=== PATIENT | male | born 1970 | race Caucasian/White ===

== ENCOUNTER 2018-09-05 01:40 | Emergency (ER) | payer MEDICARE ==
[2018-09-05] MEDS ORDERED: NORMAL SALINE 1000 ML 1,000 ML IV ONE (01:47)
--- NOTE | 2018-09-05 01:52 | ER Document Report ---
ED General - General Stated Complaint: POSSIBLE SEIZURES Time Seen by Provider: 09/05/18 01:46 Primary Care Provider: JULES DAVALOS PA [ALLIED HEALTH PROFESSIONAL] - Follow up in 3-5 days Notes: Patient is a 48-year-old male who presents with complaint of syncopal episode. Patient says he was sitting at home when he suddenly felt warm and then passed out. He does have a history of seizures. He says he does not remember all activity and this did not feel similar to his seizures. He denies any injuries or trauma. He denies any recent fevers or infections. When paramedics arrived blood pressure was in the 70s. They have started a liter of IV fluids his blood pressure is now up into the low 90s. No runny nose cough or congestion. No chest pain. No abdominal pain. No headache. He does have a previous history of a head injury as well as a C-spine fracture which required surgery. He also has a history of previous GI bleed causing syncope. He denies noticing any blood in stool. No black or tarry stools. He denies any focal weakness or numbness in his extremities. He does drink alcohol on a semi-daily basis. He occasionally has some substance abuse. He is prescribed medications for blood pressure which she does not always take. He is also on baclofen due to history of recurrent muscle spasms in his right leg. TRAVEL OUTSIDE OF THE [place] IN LAST 30 DAYS: No - Related Data Allergies/Adverse Reactions: No Known Allergies Allergy (Verified 04/15/14 20:47) Past Medical History - Social History Smoking Status: Current Every Day Smoker Frequency of alcohol use: Occasional Drug Abuse: Marijuana Family History: Arthritis, CAD, CVA, DM, Hyperlipidemia, Hypertension, Malignancy - Past Medical History Cardiac Medical History: Reports: Hx Hypercholesterolemia, Hx Hypertension Pulmonary Medical History: Reports: Hx COPD GI Medical History: Reports: Hx Ulcer Musculoskeletal Medical History: Reports Hx Musculoskeletal Trauma - SEE BELOW Psychiatric Medical History: Reports: Hx Attention Deficit Hyperactivity Disorder Traumatic Medical History: Reports: Hx Fractures - C-SPINE, L ANKLE, R LEG Past Surgical History: Reports: Hx Abdominal Surgery - ulcer repair, Hx Orthopedic Surgery - neck - Immunizations Immunizations up to date: Yes Hx Diphtheria, Pertussis, Tetanus Vaccination: Yes - 2012 Review of Systems - Review of Systems Notes: My Normal Review Basic REVIEW OF SYSTEMS: CONSTITUTIONAL : Denies fever, chills, or sweats. Denies recent illness. EENT: Denies eye, ear, throat, or mouth pain or symptoms. Denies nasal or sinus congestion. CARDIOVASCULAR: Denies chest pain. RESPIRATORY: Denies cough, cold, or chest congestion. Denies shortness of breath, difficulty breathing, or wheezing. GASTROINTESTINAL: Denies abdominal pain. Denies nausea, vomiting, or diarrhea. GENITOURINARY: Denies difficulty urinating, painful urination, burning, frequency, or blood in urine. MUSCULOSKELETAL: Denies neck or back pain or joint pain or swelling. SKIN: Denies rash or skin lesions. NEUROLOGICAL: Syncopal episode. Denies headache. Denies weakness or paralysis or loss of use of either side. Denies problems with gait or speech. Denies sensory or motor loss. ALL OTHER SYSTEMS REVIEWED AND NEGATIVE. Physical Exam - Vital signs Vitals: Resp BP Pulse Ox 25 H 92/63 L 98 09/05/18 01:42 09/05/18 01:42 09/05/18 01:42 - Notes Notes: General Appearance: Well nourished, alert, cooperative, no acute distress, no obvious discomfort. Well-appearing. Vitals: reviewed, See vital signs table. Head: no swelling or tenderness to the head Eyes: PERRL, EOMI, Conjuctiva clear Mouth: No decreasd moisture Throat: No tonsillar inflammation, No airway obstruction, No lymphadenopathy Neck: Supple, no neck tenderness Lungs: No wheezing, No rales, No rhonci, No accessory muscle use, good air exchange bilaterally. Heart: Normal rate, Regular rythm, No murmur, no rub Abdomen: Normal BS, soft, No rigidity, No abdominal tenderness, No guarding, no rebound, no abdominal masses, no organomegaly. Patient refuses rectal exam. Extremities: strength 5/5 in all extremities, good pulses in all extremities, no swelling or tenderness in the extremities, no edema. Skin: warm, dry, appropriate color, no rash Neuro: speech clear, oriented x 3, normal affect, responds appropriately to questions. Cranial nerves II through XII are intact. Distal sensation intact. Patient moves all extremities without difficulty. Course - Re-evaluation Re-evalutation: 09/05/18 03:39 I strongly suspect that the patient's syncopal episode is related to hypotension. When paramedics arrived after syncopal episode his systolic blood pressure is in the 70s. I still do not know exactly why he has hypotension. Currently his blood pressures in the 90 systolic after IV fluids however it is in the low 90s. I informed the patient that I requested he be admitted for further work-up as to why his blood pressure is running low as I fear that if he leaves he could easily fall or pass out again and injure himself. I also informed him that I do not know the exact cause of why his blood pressure is low and that he could have a life-threatening cause that is not yet showing up on his work-up and therefore could be very dangerous for him to leave. Patient and his family show understanding of this however the patient's mother did yesterday and they have a to arrange tomorrow and therefore he says he cannot stay. Patient's family is at bedside and said they will watch him very c losely. I once again informed patient that I understand his circumstances but do strongly recommend him staying as I am worried about his health and I feel it to be very dangerous for him to leave. Patient again shows understanding of this but still refuses to stay and wants to be discharged. Informed patient that that I want what is best forms and I am not mad at him for wanting to leave. I informed him that that welcome to return anytime so that we can reevaluate him. Patient shows appreciation of this will be discharged as he requests. Patient is awake and alert and answering all questions appropriately. He has not shown any signs of confusion or altered mental status. Patient will be discharged home as requested. Dictation of this chart was performed using voice recognition software; therefore, there may be some unintended grammatical errors. - Vital Signs Vital signs: Temp Pulse Resp BP Pulse Ox 98.2 F 23 H 92/67 L 96 09/05/18 01:45 09/05/18 03:01 09/05/18 03:01 09/05/18 03:01 - Laboratory Result Diagrams: 09/05/18 01:43 09/05/18 01:43 Laboratory results interpreted by me: 09/05/18 09/05/18 01:43 01:43 WBC 14.8 H RDW 14.3 H Absolute Neutrophils 9.6 H Potassium 3.3 L Chloride 96 L BUN 21 H Creatinine 1.61 H Est GFR ( Amer) 55 L Est GFR (Non-Af Amer) 46 L ALT 17 L - EKG Interpretation by Me Additional EKG results interpreted by me: 09/05/18 01:56 EKG is reviewed and interpreted by me. EKG shows sinus rhythm with a rate of 75 bpm. Very mild concave up ST segment elevation in multiple leads. No reciprocal ST segment depression. FL interval, QRS duration, QT intervals are within normal range. No old EKG available for comparison. 09/05/18 01:57 Discharge - Discharge Clinical Impression: Syncope Qualifiers: Syncope type: unspecified Qualified Code(s): R55 - Syncope and collapse Hypotension Qualifiers: Hypotension type: unspecified hypotension type Qualified Code(s): I95.9 - Hypotension, unspecified Condition: Fair Disposition: HOME, SELF-CARE Additional Instructions: The exact cause of your low blood pressure causing you to pass out is not 100% clear at this time. Your laboratory evaluation is unremarkable at this time. Your CT scan of your head did not show any concerning findings. As discussed with you I do recommend admission as your blood pressure is still on the lower side and I do not have the exact cause of why it is low. There are multiple causes of low blood pressure and some of them could likely be life-threatening and therefore I strongly feel that you should stay in the hospital as I cannot fully rule out a life-threatening cause of your low blood pressure without observation in the hospital. There is no way to determine whether or not you will have a bad outcome within the next 24 hours and this is why we prefer you to stay. We respect your decision to leave and understand that you do have prior priorities. Even though you are leaving we are not upset or mad. We just want what is best for you and therefore we encourage you to come back anytime if you have any recurrence of your symptoms. Please drink non-caffeinated liquids. Please avoid alcohol. Please return to the ER at any time for reevaluation as we are happy to reevaluate you. Please do not take your blood pressure medication over the next 24 hours. Do not take your blood pressure medication if you are blood pressure is below 140/85. Referrals: JULES DAVALOS PA [ALLIED HEALTH PROFESSIONAL] - Follow up in 3-5 days
[2018-09-05] MEDS ORDERED: NICOTINE 21 MG/24 HR PATCH.TD24 TD ONE (02:33)
[2018-09-05 02:34] LABS: ABSOLUTE BASOPHILS # (AUTO) 0.1 10^3/uL (0.0-0.2); ABSOLUTE EOSINOPHILS # (AUTO) 0.3 10^3/uL (0.0-0.6); ABSOLUTE MONOCYTES (AUTO) 0.7 10^3/uL (0.1-1.4); ABSOLUTE NEUT (AUTO) 9.6 10^3/uL (1.7-8.2); BASOPHILS % (AUTO) 0.5 % (0-2); EOSINOPHILS % (AUTO) 2.1 % (0-6); HEMATOCRIT 47.7 % (37.9-51.0); HEMOGLOBIN 16.3 g/dL (13.5-17.0); LYMPHOCYTES % (AUTO) 27.3 % (13-45); MEAN CORPUSCULAR HEMOGLOBIN 32.1 pg (27.0-33.4); MEAN CORPUSCULAR HGB CONC 34.1 g/dL (32.0-36.0); MEAN CORPUSCULAR VOLUME 94 fl (80-97); MONOCYTES % (AUTO) 5.1 % (3-13); RED BLOOD COUNT 5.06 10^6/uL (4.35-5.55); RED CELL DISTRIBUTION WIDTH 14.3 % (11.5-14.0); TOTAL CELLS COUNTED % (AUTO) 100 %; WHITE BLOOD COUNT 14.8 10^3/uL (4.0-10.5)
--- NOTE | 2018-09-05 03:03 | RADIOLOGY REPORT (SQ) ---
EXAM DESCRIPTION: XR CHEST 1 VIEW COMPLETED DATE/TME: 09/05/2018 01:46 CLINICAL HISTORY: 48 years, Male, syncope Comparison: None FINDINGS: No focal lung consolidation. No pleural effusion. No pneumothorax. Cardiac and mediastinal silhouette is unremarkable. No acute osseous abnormality. Soft tissues are unremarkable. IMPRESSION: No acute findings. No focal lung consolidation.
--- NOTE | 2018-09-05 03:03 | RADIOLOGY REPORT (SQ) ---
EXAM DESCRIPTION: CT HEAD WITHOUT IV CONTRAST COMPLETED DATE/TME: 09/05/2018 01:46 CLINICAL HISTORY: 48 years, Male, syncope COMPARISON: None. TECHNIQUE: 184 Images stored on PACS. All CT scanners at this facility use dose modulation, iterative reconstruction, and/or weight based dosing when appropriate to reduce radiation dose to as low as reasonably achievable (ALARA). [facility]: Dose Right [facility]: CareDose [facility]: Dose Right [facility]: Teradose 4D [facility]: [employer] LIMITATIONS: None. FINDINGS: Globes are intact. Paranasal sinuses and mastoid air cells are unremarkable area no displaced or depressed skull fracture. No intra or extra-axial hemorrhage. CT is limited for evaluation of acute infarct. No CT evidence for large or territorial acute infarct. No mass. No midline shift IMPRESSION: Negative exam TECHNICAL DOCUMENTATION: Quality ID # [id number]: Final reports with documentation of one or more dose reduction techniques (e.g., Automated exposure control, adjustment of the mA and/or kV according to patient size, use of iterative reconstruction technique) copyright 2011 [employer]- All Rights Reserved
[2018-09-05 03:09] LABS: PLATELET COUNT 376 10^3/uL (150-450)
[2018-09-05 03:12] LABS: ALANINE AMINOTRANSFERASE 17 U/L (21-72); ALKALINE PHOSPHATASE 92 U/L (38-126); ANION GAP 16 (5-19); ASPARTATE AMINO TRANSFERASE 18 U/L (17-59); BILIRUBIN,DIRECT 0.3 mg/dL (0.0-0.4); BILIRUBIN,TOTAL 0.4 mg/dL (0.2-1.3); BLOOD UREA NITROGEN 21 mg/dL (7-20); CALCIUM 10.1 mg/dL (8.4-10.2); CARBON DIOXIDE 25 mmol/L (22-30); CHLORIDE 96 mmol/L (98-107); GLUCOSE 94 mg/dL (75-110); POTASSIUM 3.3 mmol/L (3.6-5.0); SODIUM 137.3 mmol/L (137-145); TOTAL PROTEIN 7.8 g/dL (6.3-8.2)
[2018-09-05 04:09] VITALS: BP 92/63
--- NOTE | 2018-09-05 06:37 | EKG REPORT ---
SEVERITY:- BORDERLINE ECG - SINUS RHYTHM BORDERLINE INFERIOR Q WAVES : Confirmed by: Albino Hall MD 05-Sep-2018 06:36:16
== END 2018-09-05 04:09 | disposition home or self-care (01) ==
LOC: ER 01:40
DX: I95.9 Hypotension, unspecified (principal); R55 Syncope and collapse; M62.838 Other muscle spasm; Z79.899 Other long term (current) drug therapy; F12.10 Cannabis abuse, uncomplicated; F17.200 Nicotine dependence, unspecified, uncomplicated; J44.9 Chronic obstructive pulmonary disease, unspecified; I10 Essential (primary) hypertension; Z91.14 Patient's other noncompliance with medication regimen
CPT/HCPCS: 93005; 99285; 96360; 96361; 36415; 85025; 80053; 84484; 71045; 70450; 93010; J7030

== ENCOUNTER 2019-09-08 02:34 | Emergency (ER) | payer MEDICARE ==
--- NOTE | 2019-09-08 02:38 | ER Document Report ---
ED General - General Stated Complaint: LEGAL BLOOD DRAW Time Seen by Provider: 09/08/19 02:37 Notes: 49-year-old male presents with no symptoms after being found in a parking lot next to his car intoxicated with alcohol. He is under arrest for DUI. He says he fell yesterday and has an abrasion on his nose but otherwise feels fine. TRAVEL OUTSIDE OF THE [place] IN LAST 30 DAYS: No - Related Data Allergies/Adverse Reactions: No Known Allergies Allergy (Verified 04/15/14 20:47) Past Medical History - General Information source: Patient - Social History Smoking Status: Unknown if Ever Smoked Family History: Arthritis, CAD, CVA, DM, Hyperlipidemia, Hypertension, Mal ignancy - Past Medical History Cardiac Medical History: Reports: Hx Hypercholesterolemia, Hx Hypertension Pulmonary Medical History: Reports: Hx COPD Neurological Medical History: Reports: Hx Seizures Renal/ Medical History: Denies: Hx Peritoneal Dialysis GI Medical History: Reports: Hx Ulcer Musculoskeletal Medical History: Reports Hx Musculoskeletal Trauma - SEE BELOW Psychiatric Medical History: Reports: Hx Attention Deficit Hyperactivity Disorder Traumatic Medical History: Reports: Hx Fractures - C-SPINE, L ANKLE, R LEG Past Surgical History: Reports: Hx Abdominal Surgery - ulcer repair, Hx Orthopedic Surgery - neck - Immunizations Immunizations up to date: Yes Hx Diphtheria, Pertussis, Tetanus Vaccination: Yes - 2012 Review of Systems - Review of Systems Notes: REVIEW OF SYSTEMS GEN: Denies fever, chills, weight loss ENT: Denies sore throat, nasal discharge, ear pain EYES: Denies blurry vision, eye pain, discharge CV: Denies chest pain, palpitations, edema RESP: Denies cough, shortness of breath, wheezing GI: Denies abdominal pain, nausea, vomiting, diarrhea MSK: Denies joint pain/swelling, edema, SKIN: Denies rash, skin lesions LYMPH: Denies swollen glands/lymph nodes NEURO: Denies headache, focal weakness or numbness, dizziness PSYCH: Denies depression, suicidal or homicidal ideation PHYSICAL EXAMINATION General: No acute distress, well-nourished Head: Atraumatic, normocephalic ENT: Mouth normal, oropharynx moist, lips normal Eyes: Conjunctiva normal, pupils equal, lids normal Neck: No JVD, supple, no guarding Resp: No resp distress, equal chest rise GI: Nondistended, no guarding Back: No midline or CVA tenderness Ext: No deformities, no edema Skin: Well-perfused, no rash Neuro: Awake, alert. Face symmetric. Physical Exam - Vital signs Vitals: Temp Pulse Resp BP Pulse Ox 97.0 F 65 18 112/54 L 100 09/08/19 02:44 09/08/19 02:44 09/08/19 02:44 09/08/19 02:44 09/08/19 02:44 Course - Re-evaluation Re-evalutation: 09/08/19 03:01 Asymptomatic mild intoxication Abrasion on nose which is very small without significant head trauma or need for imaging Blood draw and discharge - Vital Signs Vital signs: Temp Pulse Resp BP Pulse Ox 97.0 F 65 18 112/54 L 100 09/08/19 02:44 09/08/19 02:44 09/08/19 02:44 09/08/19 02:44 09/08/19 02:44 Discharge - Discharge Clinical Impression: Alcohol intoxication Qualifiers: Complication of substance-induced condition: uncomplicated Qualified Code(s): F10.920 - Alcohol use, unspecified with intoxication, uncomplicated Condition: Good Disposition: HOME, SELF-CARE Instructions: Acute Alcohol Intoxication ([facility])
[2019-09-08 02:45] VITALS: BP 112/54
== END 2019-09-08 03:15 | disposition home or self-care (01) ==
LOC: ER 02:34
DX: F10.920 Alcohol use, unspecified with intoxication, uncomplicated (principal)
CPT/HCPCS: 99284

== ENCOUNTER 2020-01-01 13:43 | Inpatient (IN) | payer MEDICARE ==
[2020-01-01] MEDS ORDERED: THIAMINE HCL 100 MG in NORMAL SALINE 50 ML IV ONE (14:10)
[2020-01-01] MEDS ORDERED: RINGERS SOLUTION,LACTATED 1,000 ML IV ONE (14:11)
--- NOTE | 2020-01-01 14:14 | ER Document Report ---
ED General - General Chief Complaint: Altered Mental Status Stated Complaint: WEAKNESS Time Seen by Provider: 01/01/20 14:07 Primary Care Provider: JULES DAVALOS PA [Primary Care Provider] - Follow up as needed TRAVEL OUTSIDE OF THE [place] IN LAST 30 DAYS: No - HPI Notes: 49-year-old male with past medical history for alcohol abuse, alcohol-related seizures, high blood pressure to the emergency department from home via EMS with complaints of altered mental status. Per his son Nawaf Patton, the patient seemed very hyperactive last night and he finally got the patient to lay down at approximately 4 AM after taking his Seroquel. He states the patient then was back up between 10 and 11 AM and was acting very confused. His son states that he was not making any sense when he was talking and all he kept saying was that he needed to urinate. Son states that he is so concerned by his behavior that he decided to call medics. Once the patient arrived here, he was very combative with staff. Extremely agitated and trying to climb out of bed. He is not able to give any history due to his acute confusion. His son does report that the patient is in alcoholic. He states that he has been drinking 9 beers a day. He states that he has in the past used marijuana but recently has been placed on probation. He does have a history of seizures when using alcohol. The last ti e the son reports of a possible seizure was in August 2018. Son states that he thought he had sent all the patient's medication to the emergency department with medics but he had just found a bottle of gabapentin besides the patient's bed. He is not exactly sure of the pill, but he says that it was filled on December 18. - Related Data Allergies/Adverse Reactions: No Known Allergies Allergy (Verified 04/15/14 20:47) Past Medical History - General Information source: Relative - Social History Smoking Status: Current Every Day Smoker Frequency of alcohol use: Heavy - 9 beers a day Drug Abuse: Marijuana, Methamphetamine Family History: Arthritis, CAD, CVA, DM, Hyperlipidemia, Hypertension, Malignancy - Past Medical History Cardiac Medical History: Reports: Hx Hypercholesterolemia, Hx Hypertension Pulmonary Medical History: Reports: Hx COPD Neurological Medical History: Reports: Hx Seizures Renal/ Medical History: Denies: Hx Peritoneal Dialysis GI Medical History: Reports: Hx Ulcer Musculoskeletal Medical History: Reports Hx Musculoskeletal Trauma - SEE BELOW Psychiatric Medical History: Reports: Hx Attention Deficit Hyperactivity Disorder Traumatic Medical History: Reports: Hx Fractures - C-SPINE, L ANKLE, R LEG Past Surgical History: Reports: Hx Abdominal Surgery - ulcer repair, Hx Orthopedic Surgery - neck - Immunizations Immunizations up to date: Yes Hx Diphtheria, Pertussis, Tetanus Vaccination: Yes - 2012 Review of Systems - Review of Systems -: Yes ROS unobtainable due to patient's medical condition - Patient is confused and not able to provide any review of system Physical Exam - Vital signs Vitals: Pulse Ox 98 01/01/20 14:01 Temp Pulse Resp BP Pulse Ox 97.8 F 87 14 104/67 99 01/01/20 18:00 01/01/20 17:00 01/01/20 17:01 01/01/20 17:01 01/01/20 17:01 Intake & Output 12/31/19 01/01/20 01/02/20 06:59 06:59 06:59 Intake Total 1050 Balance 1050 Interpretation: Normal - General General appearance: Alert, Combative Notes: Patient in significant distress. He is acutely confused and altered. All he can tell the staff is that he needs to pee. He cannot say his name or where he is. He cannot be redirected. He is fighting to get off the bed. - HEENT Head: Normocephalic, Atraumatic Eyes: Normal Pupils: PERRL - Respiratory Respiratory status: No respiratory distress Chest status: Nontender Breath sounds: Normal. No: Rales, Rhonchi, Wheezing Chest palpation: Normal - Cardiovascular Rhythm: Regular Heart sounds: Normal auscultation Murmur: No - Abdominal Inspection: Normal Distension: No distension Bowel sounds: Normal Tenderness: Nontender. No: Tender, McBurney's point, Snyder's sign, Guarding Organomegaly: No organomegaly - Extremities General upper extremity: Normal inspection, Nontender, Normal color, Normal ROM, Normal temperature General lower extremity: Normal inspection, Nontender, Normal color, Normal ROM, Normal temperature, Normal weight bearing - Neurological Neuro grossly intact: Yes Cognition: Confused Orientation: Disoriented to person, Disoriented to place, Disoriented to time, Disoriented to events Jeffry Coma Scale Eye Opening: Spontaneous Jeffry Coma Scale Verbal: Inappropriate Jeffry Coma Scale Motor: Localizes to Pain Jeffry Coma Scale Total: 12 Speech: Normal Cranial nerves: Normal. 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 He is not oriented to person place or time. He is is not oriented to events. He keeps asking to urinate. He continues to try to climb out of the bed so much so that the staff has to restrain him. Occasionally he will be extremely agitated and then lay back onto the bed into snoring respirations for a couple of minutes and then wake back up very very agitated. He cannot be redirected and he cannot follow commands because of his confusion. - Psychological Associated symptoms: Agitated, Combative, Confused, Restlessness - Skin Skin Temperature: Warm Skin Moisture: Dry Skin Color: Normal Course - Re-evaluation Re-evalutation: 01/01/20 Initially was called into the room for the patient being very agitated. He decided to give 1 mg of Ativan to help with his agitation. I did consult my ER attending, Dr. Silva. She went and saw the patient and agrees with the plan for evaluating the patient for possible overdose as well as troponin, head scan, chest x-ray. Patient continued to be very combative with staff despite 1 mg of Ativan. After he got back from CT, patient was even more combative. 5 mg of Haldol was given to the patient. Prior to the Haldol being given he laid back into a snoring respiration. We decided to go ahead and give the patient Haldol to help combat the agitation. This has worked and the patient has been quietly resting since. It is noted that when he is agitated his heart rate goes up to about 120. He is never been hypoxic. After initially getting the Haldol he did have an episode where his respiratory rate went down to 6-8 and his oxygen level went to 92%. He was able to recover without any intervention from that and has had a normal respiratory rate and normal oxygen level since. Dr. Silva and I have discussed the patient several times. Noted that amphetamines were positive on his urine drug screen and will send a amphetamine confirmation. Given a son states possible overuse of gabapentin will also send a gabapentin level. Head CT is negative. Chest x-ray is clear. Patient resting quietly now but do believe that he needs to come in for further evaluation. Spoke with Dr. Helm, hospitalist. He agrees with the plan for admission. He would like for the patient to be admitted to [facility]. I did speak with patient's son Nawaf Gao and he was able to get a true pill count for me on the gabapentin. The patient is supposed to take 300 mg 3 times a day. He got it filled on December 19, 2019. His current pill count is number 43 tablets. I advise Nawaf Rich of the plan to admit the patient for further management and evaluation. He agrees. The number to reach him is [phone]. Impression: Altered mental status, alcohol abuse. Admitted to the hospitalist team. After patient was evaluated by the hospitalist team he awoke. He seems to be a little less confused now. He still saying consistently that he needs to urinate. However he cannot tell me his name which is an improvement. He can be redirected a little bit better. He is not nearly as combative. He still fairly agitated. - Vital Signs Vital signs: Temp Pulse Resp BP Pulse Ox 87 14 104/67 99 01/01/20 17:00 01/01/20 17:01 01/01/20 17:01 01/01/20 17:01 - Laboratory Result Diagrams: 01/01/20 14:02 01/01/20 14:02 Laboratory results interpreted by me: 01/01/20 01/01/20 01/01/20 14:02 14:02 14:26 RDW 15.2 H Lymph % (Auto) 11.3 L Seg Neutrophils % 82.8 H ABG pO2 ABG O2 Saturation Carbon Dioxide 20 L Glucose 148 H Total Protein 8.3 H Albumin 5.2 H Urine Ketones TRACE H Salicylates < 1.0 L Acetaminophen < 10 L 01/01/20 16:00 RDW Lymph % (Auto) Seg Neutrophils % ABG pO2 182.5 H ABG O2 Saturation 99.2 H Carbon Dioxide Glucose Total Protein Albumin Urine Ketones Salicylates Acetaminophen - Diagnostic Test Radiology reviewed: Image reviewed, Reports reviewed - EKG Interpretation by Me Additional EKG results interpreted by me: 01/01/20 18:43 Rate: 95, rhythm: Sinus rhythm, interpretation: No STEMI, no ST changes, no T wave inversions, normal axis, no LVH. This is not particularly different from prior on October 24, 2018 Discharge - Discharge Clinical Impression: Alcohol abuse Altered mental status Qualifiers: Altered mental status type: unspecified Qualified Code(s): R41.82 - Altered mental status, unspecified Condition: Stable Disposition: ADMITTED INPATIENT Admitting Provider: Alicja (Hospitalist) Unit Admitted: [facility] Referrals: JULES DAVALOS PA [Primary Care Provider] - Follow up as needed
[2020-01-01 14:27] LABS: ABSOLUTE BASOPHILS # (AUTO) 0.1 10^3/uL (0.0-0.2); ABSOLUTE EOSINOPHILS # (AUTO) 0.1 10^3/uL (0.0-0.6); ABSOLUTE MONOCYTES (AUTO) 0.4 10^3/uL (0.1-1.4); ABSOLUTE NEUT (AUTO) 7.5 10^3/uL (1.7-8.2); BASOPHILS % (AUTO) 0.7 % (0-2); EOSINOPHILS % (AUTO) 0.6 % (0-6); HEMATOCRIT 45.4 % (37.9-51.0); HEMOGLOBIN 15.7 g/dL (13.5-17.0); LYMPHOCYTES % (AUTO) 11.3 % (13-45); MEAN CORPUSCULAR HEMOGLOBIN 32.6 pg (27.0-33.4); MEAN CORPUSCULAR HGB CONC 34.5 g/dL (32.0-36.0); MEAN CORPUSCULAR VOLUME 95 fl (80-97); MONOCYTES % (AUTO) 4.6 % (3-13); PLATELET COUNT 325 10^3/uL (150-450); RED BLOOD COUNT 4.81 10^6/uL (4.35-5.55); RED CELL DISTRIBUTION WIDTH 15.2 % (11.5-14.0); SEGMENTED NEUTROPHILS % (AUTO) 82.8 % (42-78); TOTAL CELLS COUNTED % (AUTO) 100 %
[2020-01-01] MEDS ORDERED: LORAZEPAM INJ 2 MG/1 ML VIAL IV ONE ×2 (14:38→14:51)
--- NOTE | 2020-01-01 14:42 | ER Document Report ---
Doctor's Note Notes: 01/01/20 14:40 I was asked to evaluate the patient by the GILBERTO. Patient was brought in by EMS for altered mental status. He apparently had several drinks today. Patient becomes intermittently agitated and then goes to sleep. He is unable to provide any history. Patient repeats "I have to pee". He does have a catheter in. Patient does have a history of alcohol abuse. On exam, he is agitated. Patient has bilateral pinpoint pupils. Heart is regular, S1 and S2. Clear breath sounds bilaterally. He is breathing easy on room air. Abdomen is soft. Patient moves all extremities. Skin appears normal. We will obtain altered mental status work-up. Patient became very agitated during my evaluation. We will give 0.5 mg Ativan. I agree with evaluation and plan by the GILBERTO. Patient will be admitted to the hospital for altered mental status. 01/01/20 18:29
[2020-01-01 14:48] LABS: ALBUMIN 5.2 g/dL (3.5-5.0); ALKALINE PHOSPHATASE 106 U/L (38-126); ANION GAP 14 (5-19); ASPARTATE AMINO TRANSFERASE 39 U/L (17-59); BILIRUBIN,DIRECT 0.3 mg/dL (0.0-0.4); BILIRUBIN,TOTAL 0.5 mg/dL (0.2-1.3); BLOOD UREA NITROGEN 19 mg/dL (7-20); CALCIUM 10.1 mg/dL (8.4-10.2); CARBON DIOXIDE 20 mmol/L (22-30); CHLORIDE 107 mmol/L (98-107); GLUCOSE 148 mg/dL (75-110); POTASSIUM 4.7 mmol/L (3.6-5.0); TOTAL PROTEIN 8.3 g/dL (6.3-8.2)
[2020-01-01 14:49] LABS: ACETAMINOPHEN < 10 ug/mL (10-30); ALCOHOL < 10 mg/dL (NONE DETECTED); SALICYLATE < 1.0 mg/dL (2.0-20.0)
[2020-01-01] MEDS ORDERED: HALOPERIDOL LACTATE INJ 5 MG/1 ML VIAL IV ONE (15:19)
--- NOTE | 2020-01-01 15:21 | RADIOLOGY REPORT (SQ) ---
EXAM DESCRIPTION: CT HEAD WITHOUT IMAGES COMPLETED DATE/TIME: 01/01/2020 3:12 pm REASON FOR STUDY: altered mental status COMPARISON: 10/24/2018 TECHNIQUE: Axial images acquired through the brain without intravenous contrast. Images reviewed wi th bone, brain and subdural windows. Additional sagittal and coronal reconstructions were generated. Images stored on PACS. All CT scanners at this facility use dose modulation, iterative reconstruction, and/or weight based d osing when appropriate to reduce radiation dose to as low as reasonably achievable (ALARA). [facility]: Dose Right [facility]: CareDose [facility]: Dose Right [facility]: Teradose 4D [facility]: Smart Meeps RADIATION DOSE: CT Rad equipment meets quality standard of care and radiation dose reduction techniq ues were employed. CTDIvol: 55.2 mGy. DLP: 1084 mGy-cm. mGy. LIMITATIONS: None. FINDINGS: VENTRICLES: Normal size and contour. CEREBRUM: No masses. No hemorrhage. No midline shift. No evidence for acute infarction. Normal gra y/white matter differentiation. No areas of low density in the white matter. CEREBELLUM: No masses. No hemorrhage. No alteration of density. No evidence for acute infarction. EXTRAAXIAL SPACES: No fluid collections. No masses. ORBITS AND GLOBE: No intra- or extraconal masses. Normal contour of globe without masses. CALVARIUM: No fracture. PARANASAL SINUSES: No fluid or mucosal thickening. SOFT TISSUES: No mass or hematoma. OTHER: No other significant finding. IMPRESSION: NORMAL BRAIN CT WITHOUT CONTRAST. EVIDENCE OF ACUTE STROKE: NO. COMMENT: Quality ID # [id number]: Final reports with documentation of one or more dose reduction techniques (e.g., Automated exposure control, adjustment of the mA and/or kV according to patient size, use of iterative reconstruction technique) TECHNICAL DOCUMENTATION: JOB ID: [id number] 2010 [employer]- All Rights Reserved Reading location - IP/workstation name: [email or web address]
--- NOTE | 2020-01-01 16:00 | RADIOLOGY REPORT (SQ) ---
EXAM DESCRIPTION: CHEST SINGLE VIEW IMAGES COMPLETED DATE/TIME: 01/01/2020 3:52 pm REASON FOR STUDY: Altered mental status COMPARISON: 10/24/2018 EXAM PARAMETERS: NUMBER OF VIEWS: One view. TECHNIQUE: Single frontal radiographic view of the chest acquired. RADIATION DOSE: NA LIMITATIONS: None. FINDINGS: LUNGS AND PLEURA: No opacities, masses or pneumothorax. No pleural effusion. MEDIASTINUM AND HILAR STRUCTURES: No masses. Contour normal. HEART AND VASCULAR STRUCTURES: Heart normal in size. Normal vasculature. BONES: No acute findings. HARDWARE: None in the chest. OTHER: No other significant finding. IMPRESSION: NO ACUTE RADIOGRAPHIC FINDING IN THE CHEST. TECHNICAL DOCUMENTATION: JOB ID: [id number] 2010 [employer]- All Rights Reserved Reading location - IP/workstation name: [email or web address]
[2020-01-01 16:38] LABS: APPEARANCE,URINE CLEAR; BILIRUBIN,URINE NEGATIVE (NEGATIVE); COLOR,URINE YELLOW; GLUCOSE, URINE NEGATIVE (NEGATIVE); KETONES,URINE TRACE mg/dL (NEGATIVE); PROTEIN,URINE NEGATIVE (NEGATIVE); URINE SPECIFIC GRAVITY 1.019; UROBILINOGEN,URINE NEGATIVE mg/dL (<2.0)
[2020-01-01 16:42] LABS: INTERNATIONAL RATION (INR) 0.91; PROTHROMBIN TIME 12.4 SEC (11.4-15.4)
[2020-01-01 16:43] LABS: PARTIAL THROMBOPLASTIN TIME 30.1 SEC (23.5-35.8)
[2020-01-01 17:02] LABS: URINE BARBITURATES SCREEN NEGATIVE; URINE BENZODIAZEPINES SCREEN NEGATIVE; URINE COCAINE SCREEN NEGATIVE; URINE METHADONE SCREEN NEGATIVE; URINE PHENCYCLIDINE SCREEN NEGATIVE
[2020-01-01 17:04] LABS: ARTERIAL BLOOD BASE EXCESS -2.6 mmol/L; ARTERIAL BLOOD H2CO3 1.18 mmol/L (1.05-1.35); ARTERIAL BLOOD HCO3 22.2 mmol/L (20-24); ARTERIAL BLOOD O2 SATURATION 99.2 % (94-98); ARTERIAL BLOOD PCO2 39.1 mmHg (35-45); ARTERIAL BLOOD PH 7.37 (7.35-7.45); ARTERIAL BLOOD PO2 182.5 mmHg (80-100); ARTERIAL BLOOD TOTAL CO2 23.4 mmol/L (23-27)
[2020-01-01 17:08] LABS: ARTERIAL BLOOD FIO2 2L
[2020-01-01 17:28] LABS: URINE MARIJUANA (THC) SCREEN UNCONFIRMED POSITIVE
[2020-01-01] MEDS ORDERED: ACETAMINOPHEN 325 MG TABLET PO PRN (18:10)
[2020-01-01] MEDS ORDERED: ONDANSETRON HCL INJ/PF 4 MG/2 ML SDV IV PRN (18:10)
[2020-01-01] MEDS ORDERED: NICOTINE 14 MG/24 HR PATCH.TD24 TD ONE (18:30)
--- NOTE | 2020-01-01 18:36 | PDOC H&P ---
History of Present Illness Admission Date/PCP: PONCE CEDENO Patient complains of: Brought in by family for altered mental status History of Present Illness: SIERRA HERNANDEZ is a 49 year old male with history of chronic smoking, COPD, alcohol abuse, chronic pain syndrome was brought to the emergency room by family members with altered mental status. In the emergency room he was combative and agitated. He was given Haldol. The work-up including labs, CT head, chest x- ray within normal limits. Urine tox indicating positive for amphetamines, marijuana. Alcohol level is less than 10. Medical consult called for admission. unAble to get any information from the patient. Past Medical History Cardiac Medical History: Reports: Hyperlipidema, Hypertension Pulmonary Medical History: Reports: Chronic Obstructive Pulmonary Disease (COPD) Neurological Medical History: Reports: Seizures Psychiatric Medical History: Reports: Attention Deficit Hyperactivity Disorder Past Surgical History Past Surgical History: Reports: Orthopedic Surgery - neck Social History Information Source: [facility] Smoking Status: Unknown if Ever Smoked Electronic Cigarette use?: No Frequency of Alcohol Use: Heavy Hx Recreational Drug Use: Yes Drugs: Marijuana - Advance Directive Resuscitation Status: Full Code Family History Family History: Arthritis, CAD, CVA, DM, Hyperlipidemia, Hypertension, Malignancy Parental Family History Reviewed: Yes - Unknown at this time. Children Family History Reviewed: Yes Sibling(s) Family History Reviewed.: Yes Medication/Allergy Home Medications: Diazepam [Valium 5 Mg Tablet] 5 mg PO Q8HP PRN #10 tablet 08/27/12 Alprazolam [Xanax] 1 mg PO DAILY 12/18/13 Lansoprazole [Prevacid] 30 mg PO BID 12/18/13 Oxycodone HCl [Oxycontin] 20 mg PO QID 12/18/13 Quetiapine Fumarate [Seroquel] 50 mg PO QHS 12/18/13 Rosuvastatin Calcium [Crestor] 40 mg PO DAILY 12/18/13 Cephalexin Monohydrate [Keflex 500 mg Capsule] 500 mg PO QID #20 capsule 04/15/14 Dextroamphetamine/Amphetamine [Adderall 10 mg Tablet] 10 mg PO DAILY 04/15/14 Allergies/Adverse Reactions: No Known Allergies Allergy (Verified 04/15/14 20:47) Review of Systems ROS unobtainable: Due to mental status Constitutional: ABSENT: fever(s), headache(s), weakness Eyes: ABSENT: visual disturbances Ears: ABSENT: hearing changes Nose, Mouth, and Throat: ABSENT: sore throat Gastrointestinal: ABSENT: abdominal pain, constipation, diarrhea, hematemesis, hematochezia, nausea, vomiting Genitourinary: ABSENT: dysuria, hematuria Musculoskeletal: ABSENT: joint swelling Integumentary: ABSENT: rash, wounds Neurological: PRESENT: confusion Psychiatric: ABSENT: anxiety, depression, homidical ideation, suicidal ideation Endocrine: ABSENT: cold intolerance, heat intolerance, polydipsia, polyuria Physical Exam Vital Signs: Temp Pulse Resp BP Pulse Ox 87 14 104/67 99 01/01/20 17:00 01/01/20 17:01 01/01/20 17:01 01/01/20 17:01 Intake & Output 12/31/19 01/01/20 01/02/20 06:59 06:59 06:59 Intake Total 1050 Balance 1050 General appearance: PRESENT: no acute distress, cooperative, well-developed. ABSENT: mild distress Head exam: PRESENT: atraumatic Eye exam: PRESENT: PERRLA Ear exam: PRESENT: normal external ear exam Neck exam: ABSENT: carotid bruit, JVD, lymphadenopathy, thyromegaly Respiratory exam: PRESENT: decreased breath sounds Cardiovascular exam: PRESENT: RRR. ABSENT: diastolic murmur, rubs, systolic murmur GI/Abdominal exam: PRESENT: normal bowel sounds, soft. ABSENT: distended, guarding, mass, organolmegaly, rebound, tenderness Rectal exam: PRESENT: deferred Extremities exam: PRESENT: full ROM. ABSENT: calf tenderness, clubbing, pedal edema Neurological exam: PRESENT: alert Results Laboratory Results: 01/01/20 14:02 01/01/20 14:02 01/01/20 01/01/20 01/01/20 14:02 14:02 14:02 WBC 9.0 RBC 4.81 Hgb 15.7 Hct 45.4 MCV 95 MCH 32.6 MCHC 34.5 RDW 15.2 H Plt Count 325 Seg Neutrophils % 82.8 H Carbonic Acid HCO3/H2CO3 Ratio ABG pH ABG pCO2 ABG pO2 ABG HCO3 ABG O2 Saturation ABG Base Excess FiO2 Sodium 141.2 Potassium 4.7 Chloride 107 Carbon Dioxide 20 L Anion Gap 14 BUN 19 Creatinine 0.88 Est GFR ( Amer) > 60 Glucose 148 H Lactic Acid 1.1 Calcium 10.1 Magnesium 2.1 Total Bilirubin 0.5 AST 39 Alkaline Phosphatase 106 Total Protein 8.3 H Albumin 5.2 H Urine Color Urine Appearance Urine pH Ur Specific [place] Urine Protein Urine Glucose (UA) Urine Ketones Urine Blood Urine RBC (Auto) 01/01/20 01/01/20 14:26 16:00 WBC RBC Hgb Hct MCV MCH MCHC RDW Plt Count Seg Neutrophils % Carbonic Acid 1.18 HCO3/H2CO3 Ratio 18:1 ABG pH 7.37 ABG pCO2 39.1 ABG pO2 182.5 H ABG HCO3 22.2 ABG O2 Saturation 99.2 H ABG Base Excess -2.6 FiO2 2L Sodium Potassium Chloride Carbon Dioxide Anion Gap BUN Creatinine Est GFR ( Amer) Glucose Lactic Acid Calcium Magnesium Total Bilirubin AST Alkaline Phosphatase Total Protein Albumin Urine Color YELLOW Urine Appearance CLEAR Urine pH 5.0 Ur Specific [place] 1.019 Urine Protein NEGATIVE Urine Glucose (UA) NEGATIVE Urine Ketones TRACE H Urine Blood NEGATIVE Urine RBC (Auto) 5 01/01/20 14:02 Troponin I < 0.012 Impressions: Chest X-Ray 01/01/20 14:12 IMPRESSION: NO ACUTE RADIOGRAPHIC FINDING IN THE CHEST. Head CT 01/01/20 14:12 IMPRESSION: NORMAL BRAIN CT WITHOUT CONTRAST. EVIDENCE OF ACUTE STROKE: NO. Assessment and Plan - Diagnosis (1) Altered mental status Qualifiers: Altered mental status type: unspecified Qualified Code(s): R41.82 - Altered mental status, unspecified Is this a current diagnosis for this admission?: Yes Plan: 01/01/2020-patient admitted to [facility] as inpatient for altered mental status. To watch for seizure precautions. Aspiration fall precautions requested. GI prophylaxis DVT prophylaxis initiated. Neurochecks will be requested every [address] head was negative for acute pathology. Altered mental status/acute metabolic encephalopathy may be secondary to polysubstance abuse and alcohol withdrawal. (2) Alcohol abuse Is this a current diagnosis for this admission?: No Plan: 01/01/2020-patient has history of heavy alcohol use. Alcohol level is less than 10 in the ER. Started on Ativan 2 mg IV every 4 as needed to prevent DTs. (3) Tobacco abuse Is this a current diagnosis for this admission?: No Plan: 01/01/2020-patient is a daily day smoker. Order for nicotine patches in place. (4) Chronic pain syndrome Is this a current diagnosis for this admission?: No Plan: 01/01/2020-patient is taking oxycodone 20 mg 4 times a day at home. Plan to restart the medications at this time. (5) COPD (chronic obstructive pulmonary disease) Is this a current diagnosis for this admission?: No Plan: 01/01/2020-patient has history of COPD secondary to chronic smoking. Pulse ox is 99% room air. On examination chest bilateral entry was decreased no wheezing no crepitations. Urine testing is positive for marijuana. - Time Anticipated Discharge Disposition: Home, Self Care Anticipated Discharge Timeframe: within 72 hours
[2020-01-01] MEDS: LORAZEPAM INJ 2 MG/1 ML VIAL IV PRN (19:35)
--- NOTE | 2020-01-01 19:52 | EKG REPORT ---
SEVERITY:- NORMAL ECG - SINUS RHYTHM : Confirmed by: Daniel Bauer 01-Jan-2020 19:51:13
[2020-01-01] MEDS: HEPARIN SOD (PORCINE) 5,000 UNIT/ML 1 ML VIAL SUBCUT SCH (22:21)
[2020-01-02] MEDS: LORAZEPAM INJ 2 MG/1 ML VIAL IV PRN (00:36)
[2020-01-02] MEDS: NORMAL SALINE 1000 ML 1,000 ML IV PRN ×3 (01:09→23:07)
[2020-01-02 03:47] LABS: ABSOLUTE BASOPHILS # (AUTO) 0.1 10^3/uL (0.0-0.2); ABSOLUTE EOSINOPHILS # (AUTO) 0.1 10^3/uL (0.0-0.6); ABSOLUTE MONOCYTES (AUTO) 0.7 10^3/uL (0.1-1.4); HEMOGLOBIN 15.1 g/dL (13.5-17.0); TOTAL CELLS COUNTED % (AUTO) 100 %
[2020-01-02 04:00] LABS: INTERNATIONAL RATION (INR) 0.93; PROTHROMBIN TIME 12.7 SEC (11.4-15.4)
[2020-01-02 04:01] LABS: ABSOLUTE LYMPHOCYTES (AUTO) 1.9 10^3/uL (0.5-4.7); ABSOLUTE NEUT (AUTO) 6.7 10^3/uL (1.7-8.2); ALBUMIN 4.8 g/dL (3.5-5.0); ALKALINE PHOSPHATASE 107 U/L (38-126); ANION GAP 12 (5-19); ASPARTATE AMINO TRANSFERASE 35 U/L (17-59); BASOPHILS % (AUTO) 0.9 % (0-2); BILIRUBIN,DIRECT 0.3 mg/dL (0.0-0.4); BILIRUBIN,TOTAL 0.5 mg/dL (0.2-1.3); BLOOD UREA NITROGEN 17 mg/dL (7-20); CARBON DIOXIDE 22 mmol/L (22-30); CHLORIDE 107 mmol/L (98-107); CHOLESTEROL 187.88 mg/dL (0-200); EOSINOPHILS % (AUTO) 1.3 % (0-6); GLUCOSE 85 mg/dL (75-110); HEMATOCRIT 42.9 % (37.9-51.0); MEAN CORPUSCULAR HGB CONC 35.1 g/dL (32.0-36.0); MEAN CORPUSCULAR VOLUME 94 fl (80-97); PLATELET COUNT 287 10^3/uL (150-450); POTASSIUM 3.8 mmol/L (3.6-5.0); RED BLOOD COUNT 4.57 10^6/uL (4.35-5.55); RED CELL DISTRIBUTION WIDTH 15.3 % (11.5-14.0); SEGMENTED NEUTROPHILS % (AUTO) 70.8 % (42-78); TOTAL PROTEIN 7.4 g/dL (6.3-8.2); TRIGLYCERIDES 89 mg/dL (<150); WHITE BLOOD COUNT 9.5 10^3/uL (4.0-10.5)
[2020-01-02 04:11] LABS: NT PRO BNP 128 pg/mL (<125)
[2020-01-02 04:19] LABS: DIRECT LDL 86 mg/dL (<100)
[2020-01-02 04:20] LABS: TROPONIN I < 0.012 ng/mL
[2020-01-02] MEDS ORDERED: LOSARTAN POTASSIUM 50 MG TABLET PO ONE (04:38)
[2020-01-02] MEDS: PANTOPRAZOLE SODIUM 40 MG TABLET.DR PO SCH ×2 (05:21→17:12)
[2020-01-02] MEDS: HEPARIN SOD (PORCINE) 5,000 UNIT/ML 1 ML VIAL SUBCUT SCH ×3 (05:21→22:01)
--- NOTE | 2020-01-02 18:48 | PDOC PROGRESS REPORT ---
Subjective Subjective:: Per Previous Physician: "SIERRA HERNANDEZ is a 49 year old male with history of chronic smoking, COPD, alcohol abuse, chronic pain syndrome was brought to the emergency room by family members with altered mental status. In the emergency room he was combative and agitated. He was given Haldol. The work-up including labs, CT head, chest x-ray within normal limits. Urine tox indicating positive for amphetamines, marijuana. Alcohol level is less than 10. Medical consult called for admission. unAble to get any information from the patient." 01/02/2020 Patient is still persistently confused today. He knows he is at [facility] and he knows his own name but otherwise he is not oriented. BNP was normal and other labs are unremarkable, they do not correlate with a cause of his altered mental status. He has no new complaints today. We will hold sedating medications as there may be a polypharmacy component here. 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 Reason For Visit: ALTERED MENTAL STATUS Physical Exam Vital Signs: Temp Pulse Resp BP Pulse Ox 97.7 F 81 16 141/75 H 97 01/02/20 16:00 01/02/20 16:00 01/02/20 16:00 01/02/20 16:00 01/02/20 16:00 Intake & Output 01/01/20 01/02/20 01/03/20 06:59 06:59 06:59 Intake Total 1050 2030 Output Total 500 Balance 1050 1530 Weight 76.657 kg General appearance: PRESENT: no acute distress, well-developed, well-nourished Head exam: PRESENT: atraumatic, normocephalic Eye exam: PRESENT: conjunctiva pink Mouth exam: PRESENT: moist Respiratory exam: PRESENT: clear to auscultation paul. ABSENT: rales, rhonchi, wheezes Cardiovascular exam: PRESENT: RRR. ABSENT: diastolic murmur, rubs, systolic murmur GI/Abdominal exam: PRESENT: normal bowel sounds, soft. ABSENT: distended, guarding, mass, organolmegaly, rebound, tenderness Neurological exam: PRESENT: alert, awake, oriented to person, oriented to place. ABSENT: oriented to time, oriented to situation Psychiatric exam: PRESENT: appropriate affect, normal mood Skin exam: PRESENT: dry, intact, warm Results Laboratory Results: 01/02/20 03:30 01/02/20 03:30 01/01/20 01/01/20 01/02/20 18:15 21:04 03:30 WBC 9.5 RBC 4.57 Hgb 15.1 Hct 42.9 MCV 94 MCH 33.0 MCHC 35.1 RDW 15.3 H Plt Count 287 Seg Neutrophils % 70.8 Sodium Potassium Chloride Carbon Dioxide Anion Gap BUN Creatinine Est GFR ( Amer) Glucose Lactic Acid 0.6 L 0.7 Calcium Magnesium Total Bilirubin AST Alkaline Phosphatase Ammonia Total Protein Albumin Triglycerides Cholesterol LDL Cholesterol Direct VLDL Cholesterol HDL Cholesterol Lipase TSH 01/02/20 01/02/20 01/02/20 03:30 03:30 03:30 WBC RBC Hgb Hct MCV MCH MCHC RDW Plt Count Seg Neutrophils % Sodium 140.9 Potassium 3.8 Chloride 107 Carbon Dioxide 22 Anion Gap 12 BUN 17 Creatinine 0.76 Est GFR ( Amer) > 60 Glucose 85 Lactic Acid Calcium 10.0 Magnesium 2.1 Total Bilirubin 0.5 AST 35 Alkaline Phosphatase 107 Ammonia < 8.7 L Total Protein 7.4 Albumin 4.8 Triglycerides 89 Cholesterol 187.88 LDL Cholesterol Direct 86 VLDL Cholesterol 18.0 HDL Cholesterol 98 Lipase 67.6 TSH 0.56 01/01/20 01/01/20 01/02/20 14:02 21:04 03:30 Troponin I < 0.012 < 0.012 < 0.012 NT-Pro-B Natriuret Pep 128 H 01/02/20 01/02/20 12:27 13:09 Troponin I Cancelled < 0.012 NT-Pro-B Natriuret Pep Impressions: Chest X-Ray 01/01/20 14:12 IMPRESSION: NO ACUTE RADIOGRAPHIC FINDING IN THE CHEST. Head CT 01/01/20 14:12 IMPRESSION: NORMAL BRAIN CT WITHOUT CONTRAST. EVIDENCE OF ACUTE STROKE: NO. Assessment and Plan - Diagnosis (1) Acute metabolic encephalopathy Is this a current diagnosis for this admission?: Yes Plan: Per Previous Physician: "01/01/2020-patient admitted to [facility] as inpatient for altered mental status. To watch for seizure precautions. Aspiration fall precautions requested. GI prophylaxis DVT prophylaxis initiated. Neurochecks will be requested every [address] head was negative for acute pathology. 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 Alcohol level is less than 10 in the ER. 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 Pulse ox is 99% room air. On examination chest bilateral entry was decreased no wheezing no crepitations. Urine testing is positive for marijuana." 01/02/2020 No acute exacerbation (4) Chronic pain syndrome Is this a current diagnosis for this admission?: No Plan: Per Previous Physician: "01/01/2020-patient is taking oxycodone 20 mg 4 times a day at home. Plan to restart the medications at this time." 01/02/2020 Hold narcotics (5) Tobacco abuse Is this a current diagnosis for this admission?: No Plan: Nicotine patch, needs to stop smoking - Time Time Spent with patient: 25-34 minutes Medications reviewed and adjusted accordingly: Yes Anticipated Discharge Disposition: Home with Home Health Anticipated Discharge Timeframe: within 48 hours - Inpatient Certification Based on my medical assessment, after consideration of the patient's comorbidities, presenting symptoms, or acuity I expect that the services needed warrant INPATIENT care.: Yes I certify that my determination is in accordance with my understanding of Medicare's requirements for reasonable and necessary INPATIENT services [42 CFR 412.3e].: Yes Medical Necessity: Significant Comorbidiites Make Outpatient Treatment Too Risky, Need Close Monitoring Due to Risk of Patient Decompensation, Risk of Complication if Not Cared For in Hospital, Risk of Diagnosis Which Will Require Inpatient Eval/Care/Monitoring
--- NOTE | 2020-01-02 19:48 | EKG REPORT ---
SEVERITY:- ABNORMAL ECG - SINUS RHYTHM LEFT VENTRICULAR HYPERTROPHY BORDERLINE INFERIOR Q WAVES : Confirmed by: Daniel Bauer 02-Jan-2020 19:47:53
[2020-01-02] MEDS ORDERED: IPRATROPIUM/ALBUTEROL 0.5-2.5 MG/3 ML AMPUL NEB SCH (20:00)
[2020-01-03] MEDS ORDERED: (PENDING PHARMACY ID) (Ipratropium/Albuterol Sulfate [Combivent Respimat 4 Gm Mdi] 1 PUFF) IH SCH
[2020-01-03] MEDS: LORAZEPAM INJ 2 MG/1 ML VIAL IV PRN (01:40)
[2020-01-03] MEDS ORDERED: NICOTINE 21 MG/24 HR PATCH.TD24 TD ONE (02:00)
[2020-01-03] MEDS: HEPARIN SOD (PORCINE) 5,000 UNIT/ML 1 ML VIAL SUBCUT SCH ×2 (06:20→13:17)
[2020-01-03] MEDS: PANTOPRAZOLE SODIUM 40 MG TABLET.DR PO SCH (06:20)
[2020-01-03 08:25] VITALS: BP 151/92
[2020-01-03] MEDS ORDERED: SERTRALINE HCL 50 MG TABLET PO SCH (10:00)
[2020-01-03] MEDS ORDERED: (PENDING PHARMACY ID) (Sertraline Hcl [Sertraline Hcl] 150 MG) PO SCH (10:00)
[2020-01-03] MEDS ORDERED: PANTOPRAZOLE SODIUM 40 MG TABLET.DR PO SCH (10:00)
[2020-01-03] MEDS ORDERED: LOSARTAN POTASSIUM 50 MG TABLET PO SCH (10:00)
[2020-01-03] MEDS ORDERED: (PENDING PHARMACY ID) (Lansoprazole [Prevacid] 30 MG) PO SCH (10:00)
[2020-01-03] MEDS ORDERED: IPRATROPIUM/ALBUTEROL 0.5-2.5 MG/3 ML AMPUL NEB SCH (14:00)
--- NOTE | 2020-01-03 17:15 | PDOC DISCHARGE SUMMARY ---
Impression - Admit/DC Date/PCP Admission Date/Primary Care Provider: 01/01/20 18:37 PONCE CEDENO Discharge Date: 01/03/20 - Discharge Diagnosis (1) Acute metabolic encephalopathy Is this a current diagnosis for this admission?: Yes (2) Alcohol abuse Is this a current diagnosis for this admission?: Yes (3) COPD (chronic obstructive pulmonary disease) Is this a current diagnosis for this admission?: Yes (4) Chronic pain syndrome Is this a current diagnosis for this admission?: Yes (5) Tobacco abuse Is this a current diagnosis for this admission?: Yes - Additional Information Resuscitation Status: Full Code Discharge Diet: As Tolerated, Regular Discharge Activity: Activity As Tolerated, Balance Activity w/Rest Referrals: JULES DAVALOS PA [Primary Care Provider] - Follow up as needed (Patient stated that he wants to make own appointment.) Home Medications: Lansoprazole [Prevacid] 30 mg PO BID 12/18/13 Acetaminophen [Acetaminophen Extra Strength] 500 mg PO DAILYP PRN 01/01/20 Baclofen [Baclofen 20 mg Tablet] 20 mg PO TIDP PRN 01/01/20 Diclofenac Sodium 75 mg PO BID 01/01/20 Ipratropium/Albuterol Sulfate [Combivent Respimat 4 gm Mdi] 1 puff IH Q6 01/01/20 Losartan Potassium [Cozaar 50 mg Tablet] 50 mg PO DAILY 01/01/20 Sertraline HCl 150 mg PO DAILY 01/01/20 History of Present Illiness History of Present Illness: Per Previous Physician: "SIERRA HERNANDEZ is a 49 year old male with history of chronic smoking, COPD, alcohol abuse, chronic pain syndrome was brought to the emergency room by family members with altered mental status. In the emergency room he was combative and agitated. He was given Haldol. The work-up including labs, CT head, chest x-ray within normal limits. Urine tox indicating positive for amphetamines, marijuana. Alcohol level is less than 10. Medical consult called for admission. unAble to get any information from the patient." Hospital Course Hospital Course: Per Previous Physician: "SIERRA HERNANDEZ is a 49 year old male with history of chronic smoking, COPD, alcohol abuse, chronic pain syndrome was brought to the emergency room by family members with altered mental status. In the emergency room he was combative and agitated. He was given Haldol. The work-up including labs, CT head, chest x-ray within normal limits. Urine tox indicating positive for amphetamines, marijuana. Alcohol level is less than 10. Medical consult called for admission. unAble to get any information from the patient." 01/02/2020 Patient is still persistently confused today. He knows he is at [facility] and he knows his own name but otherwise he is not oriented. BNP was normal and other labs are unremarkable, they do not correlate with a cause of his altered mental status. He has no new complaints today. We will hold sedating medications as there may be a polypharmacy component here. 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 On day of discharge patient much more clear headed and much more oriented however per my lengthy discussion with the patient's son he has had memory problems ever since patient had a cervical spine injury in the past. This is been progressive per his son. Patient is alert and oriented x3 but he cannot recall the month or the exact day. This is his baseline per son. I counseled the patient and his son extensively on the patient refraining from using any alcohol or illicit drugs given that the patient admitted to me yesterday that he uses methamphetamines, marijuana, and alcohol regularly. Patient needs to follow-up with a PCP as well as a psychiatrist. (1) Acute metabolic encephalopathy resolved to baseline mentation Is this a current diagnosis for this admission?: Yes Plan: Per Previous Physician: "01/01/2020-patient admitted to [facility] as inpatient for altered mental status. To watch for seizure precautions. Aspiration fall precautions requested. GI pro phylaxis DVT prophylaxis initiated. Neurochecks will be requested every [address] head was negative for acute pathology. 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 Alcohol level is less than 10 in the ER. 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 Pulse ox is 99% room air. On examination chest bilateral entry was decreased no wheezing no crepitations. Urine testing is positive for marijuana." 01/02/2020 No acute exacerbation (4) Chronic pain syndrome Is this a current diagnosis for this admission?: No Plan: Per Previous Physician: "01/01/2020-patient is taking oxycodone 20 mg 4 times a day at home. Plan to restart the medications at this time." 01/02/2020 Hold narcotics (5) Tobacco abuse Is this a current diagnosis for this admission?: No Plan: Nicotine patch, needs to stop smoking Physical Exam Vital Signs: Temp Pulse Resp BP Pulse Ox 97.5 F 83 16 151/92 H 100 01/03/20 13:43 01/03/20 13:43 01/03/20 13:43 01/03/20 13:43 01/03/20 13:43 Intake & Output 01/02/20 01/03/20 01/04/20 06:59 06:59 06:59 Intake Total 1050 3584 472 Output Total 900 Balance 1050 2684 472 Weight 76.657 kg Exam: General appearance: PRESENT: no acute distress, well-developed, well-nourished, states she feels well and would like to go home today Head exam: PRESENT: atraumatic, normocephalic Eye exam: PRESENT: conjunctiva pink Mouth exam: PRESENT: moist Respiratory exam: PRESENT: clear to auscultation paul. ABSENT: rales, rhonchi, wheezes Cardiovascular exam: PRESENT: RRR. ABSENT: diastolic murmur, rubs, systolic murmur GI/Abdominal exam: PRESENT: normal bowel sounds, soft. ABSENT: distended, guarding, mass, organolmegaly, rebound, tenderness Neurological exam: PRESENT: alert, awake, oriented to person, oriented to place, situation, partially time. Psychiatric exam: PRESENT: appropriate affect, normal mood Skin exam: PRESENT: dry, intact, warm Results Laboratory Results: WBC 9.5 10^3/uL (4.0-10.5) 01/02/20 03:30 RBC 4.57 10^6/uL (4.35-5.55) 01/02/20 03:30 Hgb 15.1 g/dL (13.5-17.0) 01/02/20 03:30 Hct 42.9 % (37.9-51.0) 01/02/20 03:30 MCV 94 fl (80-97) 01/02/20 03:30 MCH 33.0 pg (27.0-33.4) 01/02/20 03:30 MCHC 35.1 g/dL (32.0-36.0) 01/02/20 03:30 RDW 15.3 % (11.5-14.0) H 01/02/20 03:30 Plt Count 287 10^3/uL (150-450) 01/02/20 03:30 Lymph % (Auto) 20.0 % (13-45) 01/02/20 03:30 [place] % (Auto) 7.0 % (3-13) 01/02/20 03:30 Eos % (Auto) 1.3 % (0-6) 01/02/20 03:30 Baso % (Auto) 0.9 % (0-2) 01/02/20 03:30 Absolute Neuts (auto) 6.7 10^3/uL (1.7-8.2) 01/02/20 03:30 Absolute Lymphs (auto) 1.9 10^3/uL (0.5-4.7) 01/02/20 03:30 Absolute Monos (auto) 0.7 10^3/uL (0.1-1.4) 01/02/20 03:30 Absolute Eos (auto) 0.1 10^3/uL (0.0-0.6) 01/02/20 03:30 Absolute Basos (auto) 0.1 10^3/uL (0.0-0.2) 01/02/20 03:30 Seg Neutrophils % 70.8 % (42-78) 01/02/20 03:30 PT 12.7 SEC (11.4-15.4) 01/02/20 03:30 INR 0.93 01/02/20 03:30 INR (Anticoag Therapy) Cancelled 01/01/20 14:02 INR (Anticoag Therapy) Cancelled 01/01/20 14:02 APTT 30.1 SEC (23.5-35.8) 01/01/20 15:51 Carbonic Acid 1.18 mmol/L (1.05-1.35) 01/01/20 16:00 HCO3/H2CO3 Ratio 18:1 01/01/20 16:00 ABG pH 7.37 (7.35-7.45) 01/01/20 16:00 ABG pCO2 39.1 mmHg (35-45) 01/01/20 16:00 ABG pO2 182.5 mmHg (80-100) H 01/01/20 16:00 ABG HCO3 22.2 mmol/L (20-24) 01/01/20 16:00 ABG Total CO2 23.4 mmol/L (23-27) 01/01/20 16:00 ABG O2 Saturation 99.2 % (94-98) H 01/01/20 16:00 ABG Base Excess -2.6 mmol/L 01/01/20 16:00 FiO2 2L 01/01/20 16:00 Sodium 140.9 mmol/L (137-145) 01/02/20 03:30 Potassium 3.8 mmol/L (3.6-5.0) 01/02/20 03:30 Chloride 107 mmol/L (98-107) 01/02/20 03:30 Carbon Dioxide 22 mmol/L (22-30) 01/02/20 03:30 Anion Gap 12 (5-19) 01/02/20 03:30 BUN 17 mg/dL (7-20) 01/02/20 03:30 Creatinine 0.76 mg/dL (0.52-1.25) 01/02/20 03:30 Est GFR ( Amer) > 60 (>60) 01/02/20 03:30 Est GFR (MDRD) Non-Af > 60 (>60) 01/02/20 03:30 Glucose 85 mg/dL (75-110) 01/02/20 03:30 Hemoglobin A1c % 5.0 % (4.7-6.0) 01/02/20 03:30 Lactic Acid 0.7 mmol/L (0.7-2.1) 01/01/20 21:04 Calcium 10.0 mg/dL (8.4-10.2) 01/02/20 03:30 Magnesium 2.1 mg/dL (1.6-2.3) 01/02/20 03:30 Total Bilirubin 0.5 mg/dL (0.2-1.3) 01/02/20 03:30 Direct Bilirubin 0.3 mg/dL (0.0-0.4) 01/02/20 03:30 Neonat Total Bilirubin Not Reportable 01/02/20 03:30 Neonat Direct Bilirubin Not Reportable 01/02/20 03:30 Neonat Indirect Bili Not Reportable 01/02/20 03:30 AST 35 U/L (17-59) 01/02/20 03:30 ALT 34 U/L (<50) 01/02/20 03:30 Alkaline Phosphatase 107 U/L (38-126) 01/02/20 03:30 Ammonia < 8.7 umol/L (9-33) L 01/02/20 03:30 Troponin I < 0.012 ng/mL 01/02/20 13:09 NT-Pro-B Natriuret Pep 128 pg/mL (<125) H 01/02/20 03:30 Total Protein 7.4 g/dL (6.3-8.2) 01/02/20 03:30 Albumin 4.8 g/dL (3.5-5.0) 01/02/20 03:30 Triglycerides 89 mg/dL (<150) 01/02/20 03:30 Cholesterol 187.88 mg/dL (0-200) 01/02/20 03:30 LDL Cholesterol Direct 86 mg/dL (<100) 01/02/20 03:30 VLDL Cholesterol 18.0 mg/dL (10-31) 01/02/20 03:30 HDL Cholesterol 98 mg/dL (>40) 01/02/20 03:30 Lipase 67.6 U/L (23-300) 01/02/20 03:30 TSH 0.56 uIU/mL (0.47-4.68) 01/02/20 03:30 Urine Color YELLOW 01/01/20 14:26 Urine Appearance CLEAR 01/01/20 14:26 Urine pH 5.0 (5.0-9.0) 01/01/20 14:26 Ur Specific [facility] 1.019 01/01/20 14:26 Urine Protein NEGATIVE mg/dL (NEGATIVE) 01/01/20 14:26 Urine Glucose (UA) NEGATIVE mg/dL (NEGATIVE) 01/01/20 14:26 Urine Ketones TRACE mg/dL (NEGATIVE) H 01/01/20 14:26 Urine Blood NEGATIVE (NEGATIVE) 01/01/20 14:26 Urine Nitrite (Reflex) NEGATIVE (NEGATIVE) 01/01/20 14:26 Urine Bilirubin NEGATIVE (NEGATIVE) 01/01/20 14:26 Urine Urobilinogen NEGATIVE mg/dL (<2.0) 01/01/20 14:26 Leukocyte Esterase Rfl NEGATIVE (NEGATIVE) 01/01/20 14:26 Urine RBC (Auto) 5 /HPF 01/01/20 14:26 U Hyaline Cast (Auto) 1 /LPF 01/01/20 14:26 Urine WBC (Reflex) < 1 /HPF 01/01/20 14:26 Urine Mucus (Auto) RARE /LPF 01/01/20 14:26 Urine Ascorbic Acid NEGATIVE (NEGATIVE) 01/01/20 14:26 Salicylates < 1.0 mg/dL (2.0-20.0) L 01/01/20 14:02 Urine Opiates Screen NEGATIVE 01/01/20 14:26 Urine Methadone Screen NEGATIVE 01/01/20 14:26 Acetaminophen < 10 ug/mL (10-30) L 01/01/20 14:02 Ur Barbiturates Screen NEGATIVE 01/01/20 14:26 Ur Phencyclidine Scrn NEGATIVE 01/01/20 14:26 Ur Amphetamines Screen 01/01/20 14:26 U Benzodiazepines Scrn NEGATIVE 01/01/20 14:26 Urine Cocaine Screen NEGATIVE 01/01/20 14:26 U Marijuana (THC) Screen UNCONFIRMED POSITIVE 01/01/20 14:26 Serum Alcohol < 10 mg/dL (NONE DETECTED) 01/01/20 14:02 01/01/20 01/01/20 01/02/20 14:02 21:04 03:30 Troponin I < 0.012 < 0.012 < 0.012 NT-Pro-B Natriuret Pep 128 H 01/02/20 01/02/20 12:27 13:09 Troponin I Cancelled < 0.012 NT-Pro-B Natriuret Pep Impressions: Chest X-Ray 01/01/20 14:12 IMPRESSION: NO ACUTE RADIOGRAPHIC FINDING IN THE CHEST. Head CT 01/01/20 14:12 IMPRESSION: NORMAL BRAIN CT WITHOUT CONTRAST. EVIDENCE OF ACUTE STROKE: NO. Plan Plan of Treatment: Follow-up with PCP Follow-up with psychiatry Time Spent: Greater than 30 Minutes Stroke Is this a Stroke Patient?: No Acute Heart Failure Is this a Heart Failure Patient?: No
[2020-01-04] MEDS ORDERED: NICOTINE 21 MG/24 HR PATCH.TD24 TD SCH (10:00)
== END 2020-01-03 14:33 | disposition home or self-care (01) | DRG 896 ==
LOC: ER 13:43 → EH 18:37 → 5 01-02 12:30
PROVIDERS: ADMIT Internal Medicine; ATTEND Internal Medicine
DX: F10.27 Alcohol dependence with alcohol-induced persisting dementia (principal); G93.41 Metabolic encephalopathy; J44.9 Chronic obstructive pulmonary disease, unspecified; G89.4 Chronic pain syndrome; F17.200 Nicotine dependence, unspecified, uncomplicated; R82.5 Elevated urine levels of drugs, medicaments and biological substances; Y90.0 Blood alcohol level of less than 20 mg/100 ml; E78.5 Hyperlipidemia, unspecified; I10 Essential (primary) hypertension; F90.9 Attention-deficit hyperactivity disorder, unspecified type; F15.10 Other stimulant abuse, uncomplicated; F12.10 Cannabis abuse, uncomplicated; Z79.899 Other long term (current) drug therapy; Z83.6 Family history of other diseases of the respiratory system; Z82.49 Family history of ischemic heart disease and other diseases of the circulatory system; Z82.61 Family history of arthritis
CPT/HCPCS: 36415; 70450; 71045; 80053; 80061; 80171; 80307; 81001; 82140; 82803; 83036; 83605; 83690; 83735; 83880; 84443; 84484; 85025; 85610; 85730; 87040; 93005; 93010; 96361; 96365; 96375; 99285; G0480; J1630; J1644; J2060; J3411; J3490; J7030; J7120